=== PATIENT | male | born 1970 | race Caucasian/White ===

== ENCOUNTER → 2019-08-19 | Outpatient (CLI) | payer OTHER ==
--- NOTE | 2019-08-19 11:37 | REP ---
MRI LEFT KNEE: TECHNIQUE: Axial proton density fat saturation, sagittal proton density T2 STIR, water excitation, coronal proton density, proton density fat saturation. The menisci are intact with no evidence of a tear. The cruciate and collateral ligaments are intact. The extensor mechanism is intact. 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 Medial and lateral patellar retinacula are intact. Focal marrow edema and bone bruising is seen in the medial femoral condyle. There is a small joint effusion. A tiny amount of fluid is seen in the medial popliteal fossa. IMPRESSION: No evidence of meniscal tear. Cruciate and collateral ligaments intact. Mild global chondromalacia. Bone bruise medial femoral condyle. Small joint effusion. Electronically Signed by Chris Gonzalez MD 08/19/2019 12:45 P
== END ==
LOC: M PLARAD 08:30
PROVIDERS: ATTEND Physician Assistant
DX: M25.562 Pain in left knee (principal); M79.605 Pain in left leg